=== PATIENT | female | born 1985 | race African-American/Black ===

== ENCOUNTER 2023-09-06 06:01 | Day surgery (SDC) | payer OTHER ==
[~2023-09-06] VITALS: Ht 162.6 cm; Wt 87.3 kg
[~2023-09-06 06:01] MED LIST: HYDR-3490 PO
[2023-09-06] MEDS ORDERED: LR 1,000 ML IV SCH ×2 (06:15→09:00)
[2023-09-06 06:46] LABS: HEMATOCRIT 36.1 % (36.0-47.0); HEMOGLOBIN 12.5 g/dl (12.0-15.5)
[2023-09-06] MEDS ORDERED: propofoL 200 MG/20 ML VIAL As Ordered ONE (06:46)
[2023-09-06] MEDS ORDERED: fentaNYL 100 MCG/2 ML INJECTION As Ordered ONE (06:46)
[2023-09-06] MEDS ORDERED: LIDOCAINE 2% 100MG/5ML SDV (FOR ANES.) As Ordered ONE (06:46)
[2023-09-06] MEDS ORDERED: MIDAZOLAM INJ 2MG/2ML VIAL As Ordered ONE (06:46)
[2023-09-06] MEDS ORDERED: ACETAMINOPHEN 1000MG 100ML IV BAG As Ordered ONE (06:50)
[2023-09-06 07:00] LABS: HCG, SERUM QUALITATIVE NEGATIVE (NEGATIVE)
[2023-09-06] MEDS ORDERED: ONDANSETRON 4MG 2ML VIAL As Ordered ONE (07:48)
[2023-09-06] MEDS ORDERED: KETOROLAC 60MG 2ML VIAL As Ordered ONE (07:48)
[2023-09-06] MEDS: LIDOCAINE 1% MDV 20ML VIAL As Ordered ONE (08:40)
[2023-09-06] MEDS: SILVER NITRATE APPLICATOR (1 = QTY 10) As Ordered ONE (08:42)
[2023-09-06] MEDS ORDERED: fentaNYL 100 MCG/2 ML INJECTION IV PRN (09:00)
[2023-09-06] MEDS: ONDANSETRON 4MG 2ML VIAL IV PRN (10:10)
[2023-09-06 10:15] VITALS: BP 141/80; TEMP 97.1; O2SAT 100
[2023-09-06] MEDS: oxyCODONE 5MG TAB PO PRN (10:42)
[2023-09-06] MEDS ORDERED: oxyCODONE 5MG TAB PO PRN (10:50)
[2023-09-08 18:12] LABS: HPV APTIMA Detected (Not Detected)
== END 2023-09-06 11:17 | disposition home or self-care (01) ==
LOC: M SDC 06:01
PROVIDERS: ATTEND Obstetrics & Gynecology
DX: N84.0 Polyp of corpus uteri (principal); Z12.4 Encounter for screening for malignant neoplasm of cervix; R87.613 High grade squamous intraepithelial lesion on cytologic smear of cervix (HGSIL); N97.9 Female infertility, unspecified; R73.03 Prediabetes; I10 Essential (primary) hypertension; Z79.899 Other long term (current) drug therapy
CPT/HCPCS: 36415; 58558; 84703; 85014; 85018; 87624; 88305; G0123; J0131; J1100; J1885; J2250; J2405; J3010

== ENCOUNTER 2023-10-04 06:51 | Day surgery (SDC) | payer OTHER ==
[~2023-10-04] VITALS: Ht 152.4 cm; Wt 88.5 kg
[~2023-10-04 06:51] MED LIST changes: +METF500T13 PO
[2023-10-04] MEDS ORDERED: propofoL 200 MG/20 ML VIAL As Ordered ONE (07:01)
[2023-10-04] MEDS ORDERED: ONDANSETRON 4MG 2ML VIAL As Ordered ONE (07:01)
[2023-10-04] MEDS ORDERED: fentaNYL 100 MCG/2 ML INJECTION As Ordered ONE (07:01)
[2023-10-04] MEDS ORDERED: ACETAMINOPHEN 1000MG 100ML IV BAG As Ordered ONE (07:01)
[2023-10-04] MEDS ORDERED: MIDAZOLAM INJ 2MG/2ML VIAL As Ordered ONE (07:01)
[2023-10-04] MEDS ORDERED: LIDOCAINE 2% 100MG/5ML SDV (FOR ANES.) As Ordered ONE (07:01)
[2023-10-04 07:23] LABS: HEMATOCRIT 34.8 % (36.0-47.0); HEMOGLOBIN 12.1 g/dl (12.0-15.5)
[2023-10-04] MEDS ORDERED: LR 1,000 ML IV SCH ×2 (07:50→09:50)
[2023-10-04] MEDS ORDERED: IODINE STRONG SOLN 15ML BTL As Ordered ONE (08:36)
[2023-10-04] MEDS: LIDOCAINE W/EPINEPHRINE 1% 20ML VIAL As Ordered ONE (09:15)
[2023-10-04] MEDS ORDERED: HYDROMORPHONE HCL 0.5 MG/ 0.5 ML SYRINGE IV PRN (09:50)
[2023-10-04] MEDS ORDERED: fentaNYL 100 MCG/2 ML INJECTION IV PRN (09:50)
[2023-10-04] MEDS: oxyCODONE 5MG TAB PO PRN (10:40)
[2023-10-04] MEDS: ONDANSETRON 4MG 2ML VIAL IV PRN (10:40)
[2023-10-04 11:25] VITALS: BP 146/81; TEMP 96.6; O2SAT 100
== END 2023-10-04 11:54 | disposition home or self-care (01) ==
LOC: M SDC 06:51
PROVIDERS: ATTEND Obstetrics & Gynecology
DX: R87.613 High grade squamous intraepithelial lesion on cytologic smear of cervix (HGSIL) (principal); E11.9 Type 2 diabetes mellitus without complications; I10 Essential (primary) hypertension; Z79.899 Other long term (current) drug therapy; Z79.84 Long term (current) use of oral hypoglycemic drugs; Z86.018 Personal history of other benign neoplasm
CPT/HCPCS: 36415; 57460; 81025; 85014; 85018; 88305; 88307; J0131; J1100; J2250; J2405; J3010

== ENCOUNTER → 2025-02-04 | Outpatient (CLI) | payer OTHER | LOC: M WHC 09:28 | PROVIDERS: ATTEND General Practice | DX: Z12.31 Encounter for screening mammogram for malignant neoplasm of breast (principal) ==